=== PATIENT | male | born 1955 | race Caucasian/White ===

== ENCOUNTER 2021-07-26 15:29 | Emergency (ER) | payer OTHER, SELFPAY ==
[2021-07-26] VITALS (24 sets, daily range): BP systolic 129–189; BP diastolic 72–98; PULSE 67–79; RESP 15–25; TEMP 36.6; O2SAT 92–99; BMI 33.2
--- NOTE | 2021-07-26 15:39 | DI.RAD.S_ITS ---
PROCEDURE: XR CHEST 1V INDICATIONS: chest pain TECHNIQUE: One view of the chest was acquired. COMPARISON: None. FINDINGS: Surgical changes and devices: None. Lungs and pleura: Lungs are clear. No pleural effusions or pneumothorax. Mediastinum: Mediastinal contours appear normal. Heart size is normal. Atherosclerotic vascular calcification noted in the aortic arch. Bones and chest wall: No suspicious bony lesions. Overlying soft tissues appear unremarkable. IMPRESSION: No acute cardiopulmonary findings Approved by: Murphy Silverman M.D. on 07/26/2021 at 15:34
--- NOTE | 2021-07-26 16:09 | ED.CHESTPAIN ---
HPI - Chest Pain General Chief Complaint: Chest Pain Stated Complaint: Chest pressure, upper arm and jaw pain Time Seen by Provider: 07/26/21 15:42 Source: patient Mode of arrival: Ambulatory Limitations: no limitations History of Present Illness HPI narrative: 66-year-old male nonsmoker with history of polycythemia vera (managed by the [facility] on hydroxyurea) presents at the request of his primary care provider for evaluation of a series of symptoms have been gradually worsening over the past week or so. He states that he has had some central chest pressure that is mild at its most intense and free of any obvious provocation or palliation. He denies that exertion makes his symptoms any worse, change in position or deep breast not affect his discomfort. He denies any shortness of breath, cough nor fever or chills. He does state that he has achy pain in both arms as well as his lower jaw. He denies any exertion or overuse. He denies any reproducibility of this pain. He denies any cardiac history and states that he had a stress test a few months ago that was apparently normal. He does admit to recent long distance travel as he drove from [place] recently, the trip took in 3 and half days. Related Data Home Medications Medication Instructions Recorded Confirmed aspirin 81 mg capsule 81 mg PO DAILY 07/26/21 07/26/21 doxycycline hyclate 50 mg capsule 50 mg PO BID 07/26/21 07/26/21 esomeprazole magnesium 40 mg 40 mg PO DAILY 07/26/21 07/26/21 granules delayed release for susp fluticasone propionate 50 1 spray INTRANASAL DAILY PRN 07/26/21 07/26/21 mcg/actuation nasal spray,suspension hydroxyurea 500 mg capsule 1,000 mg PO 4XW 07/26/21 07/26/21 hydroxyurea 500 mg capsule 1,500 mg PO 2XW 07/26/21 07/26/21 lisinopril 10 mg tablet 10 mg PO DAILY 07/26/21 07/26/21 metoprolol succinate 100 mg 100 mg PO DAILY 07/26/21 07/26/21 tablet,extended release 24 hr metronidazole 1 % topical gel 1 applic TOPICAL DAILY 07/26/21 07/26/21 (Metrogel) rosuvastatin 20 mg tablet 20 mg PO DAILY 07/26/21 07/26/21 Allergies Allergy/AdvReac Type Severity Reaction Status Date / Time No Known Drug Allergies Allergy Verified 07/26/21 15:40 Review of Systems Review of Systems Narrative: GENERAL: Denies chills, fatigue, malaise, fever, sweats. HEENT: Denies sinus pain, ear pain, sore throat, difficulty swallowing, dizziness. RESPIRATORY: Denies dyspnea, cough, wheezing, hemoptysis, sputum. CARDIOVASCULAR: See HPI GASTROINTESTINAL: Denies nausea, vomiting, abdominal pain, diarrhea, constipation, melena. : Denies dysuria, frequency, incontinence, hematuria, urinary retention. MUSCULOSKELETAL: See HPI SKIN: Denies rash, skin lesions, or other NEUROLOGIC: Denies weakness, headache, numbness, change in speech, confusion, seizures, incoordination. PSYCHIATRIC: No concerning psychosocial issues. 12 point review of systems is negative except for those stated above Patient History Social History Smoking Status: Unknown if ever smoked Smoking Status: Unknown if ever smoked alcohol intake frequency: holidays/special occasions only Substance Use Type: does not use Exam Narrative Exam Narrative: GENERAL: [66 year old patient appears stated age. Well-developed patient, in mild distress. HEAD: Atraumatic. Normocephalic. EYES: Pupils equal round and reactive. Extraocular motions intact. No scleral icterus. No injection or drainage. ENT: Nose without bleeding, purulent drainage. Throat without erythema, tonsillar hypertrophy or exudate. Airway patent. NECK: Trachea midline. Non tender CARDIOVASCULAR: Regular rate and rhythm without murmurs, gallops, or rubs. RESPIRATORY: Clear to auscultation. Breath sounds equal bilaterally. No wheezes, rales, or rhonchi. GASTROINTESTINAL: Abdomen soft, non-tender, nondistended. EXTREMITIES: No edema or joint tenderness. BACK: Nontender without deformity or crepitance. No flank tenderness. NEURO: AOx3. SKIN: No rash or erythema of visible areas Initial Vital Signs Initial Vital Signs: Vital Signs Temperature 97.8 F 07/26/21 15:35 Pulse Rate 78 07/26/21 15:35 Respiratory Rate 15 07/26/21 15:35 Blood Pressure 189/98 H 07/26/21 15:35 Pulse Oximetry 99 07/26/21 15:35 Course Orders Ordered: ED Orders 07/26/21 15:39 XR chest 1V Stat EKG-12 Lead Stat 07/26/21 16:15 Complete Blood Count AUTO DIFF Stat Comprehensive Metabolic Panel Stat D Dimer Stat Lipase Stat Magnesium Stat Partial Thromboplastin Time Stat Prothrombin Time INR Stat Troponin & CK Cardiac Panel Stat 07/26/21 17:28 EKG-12 Lead Routine 07/26/21 17:55 COVID19 -Nasal swab/Pre-Proc Stat 07/26/21 18:41 Trop I [Troponin I] Stat 07/27/21 05:55 PTT [Partial Thromboplastin Time] Q6H 07/27/21 11:55 PTT [Partial Thromboplastin Time] Q6H 07/27/21 17:55 PTT [Partial Thromboplastin Time] Q6H Heparin Sodium/Dextrose (Heparin Drip) 25,000 unit in 500 mls @ 20 mls/hr IV CONT DONNY; Protocol Last Admin: 07/26/21 18:06 Dose: 1,000 units/hr, 20 mls/hr Documented by: JOEL Discontinued Medications Aspirin (Aspirin 81 Mg Chew Tab) 324 mg PO NOW ONE Stop: 07/26/21 17:32 Last Admin: 07/26/21 17:41 Dose: 324 mg Documented by: JOEL Atorvastatin Calcium (Atorvastatin 20 Mg Tablet) 40 mg PO NOW ONE Stop: 07/26/21 18:18 Last Admin: 07/26/21 18:22 Dose: 40 mg Documented by: JOEL Heparin Sodium (Porcine) (Heparin 5,000 Unit/Ml Vial) 5,000 unit IV NOW ONE Stop: 07/26/21 17:56 Last Admin: 07/26/21 18:05 Dose: 5,000 unit Documented by: JOEL Metoprolol Tartrate (Metoprolol Ir 25 Mg Tablet) 25 mg PO NOW ONE Stop: 07/26/21 18:07 Last Admin: 07/26/21 18:13 Dose: 25 mg Documented by: JOEL Morphine Sulfate (Morphine 4 Mg/Ml Inj) 4 mg IV NOW ONE Stop: 07/26/21 18:17 Last Admin: 07/26/21 18:22 Dose: 4 mg Documented by: JOEL Nitroglycerin (Nitroglycerin 0.4 Mg Sl Tab) 0.4 mg SL [id number] PRN PRN Reason: Chest Pain Last Admin: 07/26/21 17:57 Dose: 0.4 mg Documented by: Admin: 07/26/21 17:43 Dose: 0.4 mg Documented by: Admin: 07/26/21 17:34 Dose: 0.4 mg Documented by: JOEL Consultations Consultation #1: Upon receipt of positive troponin call was placed to on-call Cardiology (Radha) who recommends heparin and transfer to [facility]. Patient is clearly an NSTEMI in will need heart catheterization. He has called and spoken with nursing processing talc and borate supervisor and they do have an available bed. Face sheet faxed, awaiting call from hospitalist Consultation #2: hospitalist at [facility] (Fatimah) happy to accept Vital Signs Vital signs: Vital Signs - 8 hr 07/26/21 15:35 07/26/21 15:37 07/26/21 15:38 Temperature 97.8 F Pulse Rate 78 78 78 Respiratory Rate 15 Blood Pressure 189/98 H 189/98 H Pulse Oximetry 99 99 07/26/21 16:00 07/26/21 16:30 07/26/21 17:00 Temperature Pulse Rate 74 73 71 Respiratory Rate 25 H 19 19 Blood Pressure 169/91 H 155/82 H Pulse Oximetry 96 94 94 07/26/21 17:01 07/26/21 17:30 07/26/21 17:40 Temperature Pulse Rate 73 73 77 Respiratory Rate 20 22 21 Blood Pressure 161/76 H 170/90 H 145/73 H Pulse Oximetry 95 96 93 07/26/21 17:45 07/26/21 17:50 07/26/21 17:55 Temperature Pulse Rate 79 78 75 Respiratory Rate 24 23 19 Blood Pressure 148/79 H 147/77 H 148/82 H Pulse Oximetry 94 93 93 07/26/21 18:00 07/26/21 18:06 07/26/21 18:10 Temperature Pulse Rate 78 72 75 Respiratory Rate 22 19 22 Blood Pressure 138/78 144/72 H 136/76 Pulse Oximetry 92 95 95 07/26/21 18:15 07/26/21 18:30 07/26/21 18:45 Temperature Pulse Rate 73 68 68 Respiratory Rate 22 21 20 Blood Pressure 161/77 H 139/73 129/72 Pulse Oximetry 95 95 96 07/26/21 19:00 07/26/21 19:15 Temperature Pulse Rate 68 67 Respiratory Rate 16 16 Blood Pressure 141/80 H 142/77 H Pulse Oximetry 94 94 MDM - Chest Pain Lab Data Result diagrams: 07/26/21 16:15 07/26/21 16:15 Labs: Lab Results 07/26/21 07/26/21 07/26/21 Range/Units 16:15 16:15 16:15 WBC 6.3 (4.5-11.0) X10^3/uL RBC 4.18 L (4.5-5.9) X10^6/uL Hgb 15.7 (13.5-17.5) g/dL Hct 45.3 (41-53) % MCV 108.5 H (80-100) fL MCH 37.6 H (26-34) PG MCHC 34.7 (30-36) % RDW 14.7 (11.6-14.8) % Plt Count 286 (150-400) X10^3/uL Neut % (Auto) 74.9 (50-75) % Lymph % (Auto) 19.1 L (25-40) % [facility] % (Auto) 3.9 (3-14) % Eos % (Auto) 1.8 L (2-4) % Baso % (Auto) 0.3 (0-2) % Neut # (Auto) 4700 (4000-2873) /uL Lymph # (Auto) 1200 (3191-8260) /uL [facility] # (Auto) 200 (0-900) /uL Eos # (Auto) 100 (0-450) /uL Baso # (Auto) 0 (0-100) /uL PT 13.6 H (10.1-12.7) SECONDS INR 1.2 (0.9-1.3) APTT 32 (26.4-36.2) SECONDS D-Dimer (<230) ng/mL Sodium 136 L (137-145) mmol/L Potassium 4.1 (3.4-5.1) mmol/L Chloride 100 (98-107) mmol/L Carbon Dioxide 29 (22-32) mmol/L BUN 10 (9-20) mg/dL Creatinine 0.79 (0.66-1.25) mg/dL Estimated GFR > 60.0 (>60) mL/min BUN/Creatinine Ratio 12.7 (6-22) Glucose 154 H (80-110) mg/dL Calcium 9.2 (8.4-10.2) mg/dL Magnesium 1.9 (1.6-2.3) mg/dL Total Bilirubin 1.0 (0.2-1.3) mg/dL AST 32 (17-59) IU/L ALT 30 (<50) IU/L Alkaline Phosphatase 52 (38-126) U/L Total Creatine Kinase 75 (55-170) U/L CK-MB (CK-2) TNP CK-MB (CK-2) Rel Index TNP Troponin I 0.162 H* (0.01-0.034) ng/mL Total Protein 7.2 (6.3-8.2) g/dL Albumin 4.3 (3.5-5.0) g/dL Globulin 2.9 (1.7-4.1) g/dL Albumin/Globulin Ratio 1.5 (1.0-2.8) Lipase 76 (23-300) U/L SARS-CoV-2 (PCR) (Negative) 07/26/21 07/26/21 Range/Units 16:15 17:55 WBC (4.5-11.0) X10^3/uL RBC (4.5-5.9) X10^6/uL Hgb (13.5-17.5) g/dL Hct (41-53) % MCV (80-100) fL MCH (26-34) PG MCHC (30-36) % RDW (11.6-14.8) % Plt Count (150-400) X10^3/uL Neut % (Auto) (50-75) % Lymph % (Auto) (25-40) % [facility] % (Auto) (3-14) % Eos % (Auto) (2-4) % Baso % (Auto) (0-2) % Neut # (Auto) (3797-9278) /uL Lymph # (Auto) (3977-3504) /uL [facility] # (Auto) (0-900) /uL Eos # (Auto) (0-450) /uL Baso # (Auto) (0-100) /uL PT (10.1-12.7) SECONDS INR (0.9-1.3) APTT (26.4-36.2) SECONDS D-Dimer < 200 (<230) ng/mL Sodium (137-145) mmol/L Potassium (3.4-5.1) mmol/L Chloride (98-107) mmol/L Carbon Dioxide (22-32) mmol/L BUN (9-20) mg/dL Creatinine (0.66-1.25) mg/dL Estimated GFR (>60) mL/min BUN/Creatinine Ratio (6-22) Glucose (80-110) mg/dL Calcium (8.4-10.2) mg/dL Magnesium (1.6-2.3) mg/dL Total Bilirubin (0.2-1.3) mg/dL AST (17-59) IU/L ALT (<50) IU/L Alkaline Phosphatase (38-126) U/L Total Creatine Kinase (55-170) U/L CK-MB (CK-2) CK-MB (CK-2) Rel Index Troponin I (0.01-0.034) ng/mL Total Protein (6.3-8.2) g/dL Albumin (3.5-5.0) g/dL Globulin (1.7-4.1) g/dL Albumin/Globulin Ratio (1.0-2.8) Lipase (23-300) U/L SARS-CoV-2 (PCR) Negative (Negative) Urine Dip Bedside Urine Glucose 250 mg/dl Bedside Urine Bilirubin - Negative Bedside Urine Ketone - Negative Urine Specific [place] 1.010 Bedside Urine Occult Blood - Negative Bedside Urine pH 6.0 Bedside Urine Protein - Negative Bedside Urine Urobilinogen - Negative Bedside Urine Nitrite - Negative Bedside Urine Leukocytes - Negative Esterase Imaging Data Chest x-ray: Radiologist's Impression: Launch?[address] [address] XRay Report Signed Patient: Elinor Gil MR#: [id number] : 1955 Acct:[id number] Age/Sex: 66 / M Date of Service: 07/26/21 Loc: ED Accession Number: [id number] ?? Procedure: XR chest 1V Ordering Provider: Neftaly Monroy D.O. PROCEDURE:? XR CHEST 1V ? INDICATIONS:? chest pain ? TECHNIQUE:? One view of the chest was acquired.? ? COMPARISON:? None. ? FINDINGS:? ? Surgical changes and devices:? None.? ? Lungs and pleura:? Lungs are clear.? No pleural effusions or pneumothorax.? ? Mediastinum:? Mediastinal contours appear normal.? Heart size is normal.? Atherosclerotic vascular calcification noted in the aortic arch. ? Bones and chest wall:? No suspicious bony lesions.? Overlying soft tissues appear unremarkable.? ? IMPRESSION:? No acute cardiopulmonary findings ? ? ? Approved by: Murphy Silverman M.D. on 07/26/2021 at 15:34? ECG Data Interpretation: EKG is normal sinus rhythm rate [ 77] and free of any signs of ischemia or ectopy. No ST segmental elevation or depression. No T wave inversions Critical Care Time Critical Care Time Critical Care Time: Yes Total Critical Care Time: 30 Attestation: The high probability of a clinically significant, sudden or life threatening deterioration of the [CV] system(s) required my full and direct attention, intervention and personal management. The aggregate critical care time was [30] minutes. This time is in addition to time spent performing reported procedures but includes the following: [x] Data Review and interpretation [x] Patient assessment and monitoring of vital signs [x] Documentation [x] Medication orders and management Discharge Plan Departure Patient Disposition: [facility] Clinical Impression: Non-ST elevation [place] (NSTEMI) Prescriptions: No Action hydroxyurea 500 mg capsule 1,000 mg PO 4XW 0RF Rx Instructions: Mon, Wed, Th, Sat hydroxyurea 500 mg capsule 1,500 mg PO 2XW 0RF Rx Instructions: and Sat doxycycline hyclate 50 mg capsule 50 mg PO BID 0RF metoprolol succinate 100 mg Tablet Extended Release 24 Hr 100 mg PO DAILY 0RF lisinopril 10 mg tablet 10 mg PO DAILY 0RF fluticasone propionate 50 mcg/actuation [place],Suspension 1 spray INTRANASAL DAILY PRN (Reason: Congestion) 0RF rosuvastatin 20 mg tablet 20 mg PO DAILY 0RF Label Comments: TAKE 1 TABLET DAILY metronidazole [Metrogel] 1 % gel 1 applic TOPICAL DAILY 0RF Label Comments: Apply 1 a small amount to affected area once a day esomeprazole magnesium [address] For Susp In Packet 40 mg PO DAILY 0RF aspirin 81 mg Capsule 81 mg PO DAILY 0RF
[2021-07-26 16:24] LABS: Add Manual Diff / Slide Review NO; Basophils Absolute Auto 0 /uL (0-100); Basophils Percent Auto 0.3 % (0-2); Eosinophils Absolute Auto 100 /uL (0-450); Eosinophils Percent Auto 1.8 % (2-4); Hematocrit 45.3 % (41-53); Hemoglobin 15.7 g/dL (13.5-17.5); Lymphocytes Absolute Auto 1200 /uL (1100-4500); Lymphocytes Percent Auto 19.1 % (25-40); Mean Corpuscular HGB Conc 34.7 % (30-36); Mean Corpuscular Hemoglobin 37.6 PG (26-34); Mean Corpuscular Volume 108.5 fL (80-100); Monocytes Absolute Auto 200 /uL (0-900); Monocytes Percent Auto 3.9 % (3-14); Neutrophils Absolute Auto 4700 /uL (1500-7000); Neutrophils Percent Auto 74.9 % (50-75); Platelet Count 286 X10^3/uL (150-400); Red Blood Cell Count 4.18 X10^6/uL (4.5-5.9); Red Cell Distribution Width 14.7 % (11.6-14.8); White Blood Cell Count 6.3 X10^3/uL (4.5-11.0)
[2021-07-26 16:34] LABS: INR 1.2 (0.9-1.3); Prothrombin Time 13.6 SECONDS (10.1-12.7)
[2021-07-26 16:36] LABS: PTT Partial Thromboplastin Tim 32 SECONDS (26.4-36.2)
[2021-07-26 16:42] LABS: Alanine Aminotransferase 30 IU/L (<50); Albumin 4.3 g/dL (3.5-5.0); Albumin Globulin Ratio 1.5 (1.0-2.8); Alkaline Phosphatase 52 U/L (38-126); Aspartate Aminotransferase 32 IU/L (17-59); BUN Creatinine Ratio 12.7 (6-22); Blood Urea Nitrogen 10 mg/dL (9-20); Calcium 9.2 mg/dL (8.4-10.2); Carbon Dioxide 29 mmol/L (22-32); Chloride 100 mmol/L (98-107); Creatine Kinase 75 U/L (55-170); Estimated Glomerular Filt Rate > 60.0 mL/min (>60); Globulin 2.9 g/dL (1.7-4.1); Glucose 154 mg/dL (80-110); HEMOLYSIS 15 (0-50); Lipase 76 U/L (23-300); Magnesium 1.9 mg/dL (1.6-2.3); Potassium 4.1 mmol/L (3.4-5.1); Sodium 136 mmol/L (137-145); Total Protein 7.2 g/dL (6.3-8.2)
[2021-07-26 17:28] LABS: Troponin I 0.162 ng/mL (0.01-0.034)
[2021-07-26] MEDS: NITROGLYCERIN 0.4 MG SL TAB SL ×3 (17:34→17:57)
[2021-07-26] MEDS: ASPIRIN 81 MG CHEW TAB 324 MG PO (17:41)
[2021-07-26 17:51] LABS: D Dimer < 200 ng/mL (<230)
[2021-07-26] MEDS: HEPARIN 5,000 UNIT/ML VIAL 5000 UNIT IV (18:05)
[2021-07-26] MEDS: HEPARIN DRIP 25,000 UNIT/500 ML IV.SOLN 20 UNIT IV (18:06)
[2021-07-26] MEDS: METOPROLOL IR 25 MG TABLET PO (18:13)
[2021-07-26] MEDS: ATORVASTATIN 20 MG TABLET 40 MG PO (18:22)
[2021-07-26] MEDS: MORPHINE 4 MG/ML INJ IV (18:22)
[2021-07-26 18:43] LABS: COVID19 -Nasal RAPID Negative (Negative)
[2021-07-26 19:45] LABS: Troponin I 0.194 ng/mL (0.01-0.034)
--- NOTE | 2021-07-26 20:17 | PC.NURSE ---
Pain now 08/24. VS WNL. and pt informed of process of transfer and that pt is going to [facility]. Bilat IVs look good and are patent.
== END 2021-07-26 20:36 | disposition short-term general hospital (02) ==
PROVIDERS: Emergency Provider Emergency Medicine
DX: I21.4 Non-ST elevation (NSTEMI) myocardial infarction (principal); Z20.822 Contact with and (suspected) exposure to COVID-19
CPT/HCPCS: 36415; 71045; 80053; 81003; 82550; 83690; 83735; 84484; 85025; 85379; 85610; 85730; 87635; 93005; 93010; 96365; 96366; 96375; 99284; 99291; C9803; J1644; J2270